=== PATIENT | male | born 1970 | race Caucasian/White ===

== ENCOUNTER 2020-07-14 20:20 | Inpatient (IN) ==
[2020-07-14 21:22] LABS: Basophils # 0.1 K/mcL (0.0-0.2); Basophils % 0.6 %; Eosinophils # 0.3 K/mcL (0.0-0.6); Eosinophils % 2.7 %; Hematocrit 48.3 % (37.5-50.1); Hemoglobin 16.5 g/dL (12.9-16.9); Immature Granulocytes % 0.3 % (0-4); Lymphocytes # 2.6 K/mcL (0.6-4.6); Lymphocytes % 24.5 %; Mean Corpuscular HGB Conc 34.2 g/dL (31.6-35.5); Mean Corpuscular Hemoglobin 32.4 pg (28.0-33.3); Mean Corpuscular Volume 94.7 fL (83.0-100.0); Mean Platelet Volume 8.6 fL (9.4-12.4); Monocytes # 0.6 K/mcL (0.0-1.3); Platelet Count 266 K/mcL (140-400); Segmented Neutrophils % 65.9 %; White Blood Count 10.6 K/mcL (4.3-11.1)
[2020-07-14 21:36] LABS: Bilirubin,Urine Negative (Negative); Blood,Urine Negative (Negative); Clarity,Urine Clear (Clear); Color,Urine Light-Yellow (Yellow); Glucose,Urine (UA) Normal (Normal); Ketones,Urine Negative (Negative); Leukocyte Esterase,Urine Negative (Negative); Nitrite,Urine Negative (Negative); PH,Urine 5.5 pH Units (5.0-8.0); Protein,Urine Negative (Neg-Trace); Specific Gravity,Urine > 1.030 (1.010-1.025); Urobilinogen,Urine Normal (Normal)
[2020-07-14] MEDS ORDERED: *HR* LORazepam 2 MG/ML VIAL IM ONE (21:37)
[2020-07-14 21:39] LABS: Amphetamine Screen,Urine Negative ng/mL (Cutoff=1000); Barbiturate Screen,Urine Negative ng/mL (Cutoff=200); Benzodiazepines Screen,Urine Positive ng/mL (Cutoff=200); Cannabinoid Screen,Urine Positive ng/mL (Cutoff = 50); Cocaine Screen,Urine Negative ng/mL (Cutoff= 300); Opiate Screen,Urine Negative ng/mL (Cutoff=300); Phencyclidine Screen,Urine Negative ng/mL (Cutoff=25)
[2020-07-14 22:04] LABS: Acetaminophen < 10 mcg/mL (10-20); BUN/Creatinine Ratio 30 (6-26); Blood Urea Nitrogen 31 mg/dL (6-20); Calcium 9.7 mg/dL (8.6-10.3); Carbon Dioxide 22 mEq/L (23-29); Chloride 106 mEq/L (98-107); Chol/HDL Ratio 3.6 (0-4.9); Cholesterol 205 mg/dL (< 200); Ethanol < 10 mg/dL (Less than 10); Glucose 94 mg/dL (70-105); HDL Cholesterol 57 mg/dL (40-59); LDL Cholesterol,Calculated 112 mg/dL (< 100); Osmolality,Calculated 288 (280-300); Potassium 4.2 mEq/L (3.5-5.1); Salicylate < 2.5 mg/dL (15.0-30.0); Sodium 136 mEq/L (136-145); Triglycerides 181 mg/dL (< 150); eGFR For African Americans > 60 (> 60); eGFR For Non-African Americans > 60 (> 60)
[2020-07-14 22:38] LABS: Estimated Average Glucose 128 mg/dl
[2020-07-14] MEDS ORDERED: haloperidoL 5 MG TABLET PO PRN (23:41)
[2020-07-14] MEDS ORDERED: Mag Hydrox/Al Hydrox/Simeth 30 ML UDC PO PRN (23:41)
[2020-07-14] MEDS ORDERED: Ibuprofen 400 MG TABLET PO PRN (23:41)
[2020-07-14] MEDS ORDERED: Haloperidol Lactate 5 MG/ML VIAL IM PRN (23:41)
[2020-07-14] MEDS ORDERED: MOM Conc 10 ML UD.LIQ PO PRN (23:41)
[2020-07-14] MEDS ORDERED: *HR* LORazepam 2 MG/ML VIAL IM PRN (23:41)
[2020-07-14] MEDS ORDERED: *HR* LORazepam 1 MG TABLET PO PRN (23:41)
[2020-07-14] MEDS ORDERED: hydrOXYzine pamoate 25 MG CAPSULE PO PRN (23:41)
[2020-07-14] MEDS ORDERED: QUEtiapine Fumarate 100 MG TABLET PO SCH (23:45)
[2020-07-14] MEDS ORDERED: QUEtiapine Fumarate 100 MG TABLET PO ONE (23:45)
[2020-07-15] MEDS ORDERED: haloperidoL 5 MG TABLET PO ONE (01:29)
[2020-07-15] MEDS ORDERED: ARIPiprazole 5 MG TABLET PO SCH (21:00)
[2020-07-16] MEDS ORDERED: traZODone 50 MG TABLET PO PRN (00:35)
[2020-07-16 09:00] VITALS: BP 117/77
== END 2020-07-16 13:05 | disposition home or self-care (01) | DRG 753 ==
LOC: EMEROOARM 20:20 → 1ANU 23:36
PROVIDERS: ADMIT Psychiatry & Neurology Psychiatry; ATTEND Psychiatry & Neurology Psychiatry